=== PATIENT | male | born 1995 ===

== ENCOUNTER 2018-01-09 08:22 | Emergency (ER) | payer MEDICAID ==
[2018-01-09 08:24] VITALS: BP 140/89
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
[2018-01-09] MEDS: IBUPROFEN 800 MG TAB PO ONE ×2 (08:30→08:45)
--- NOTE | 2018-01-09 09:09 | RADIOLOGY IMAGING REPORT ---
FACILITY: [facility] PATIENT NAME: Vicente Prabhakar : 1995 MR: [id number] V: [id number] EXAM DATE: ORDERING PHYSICIAN: JENN ROBIN TECHNOLOGIST: Location: [facility] Patient: Vicente Prabhakar : 1995 Visit/Account:[id number] Date of Sevice: 01/09/2018 Technique: KNEE 3 VIEW LEFT HISTORY: Knee pain Comparison studies: Left knee radiographs April 26, 2018 FINDINGS: Slight cortical irregularity and lucency is noted within the left fibular head. The alignme nt of the left knee is maintained. No knee joint effusion. IMPRESSION: 1. Slight cortical irregularity and lucency within the left fibular head likely representing osseous superimposition; however, correlate with point tenderness to exclude fracture. Report Dictated By: Alfredo Mace DO at 01/09/2018 9:02 AM Report E-Signed By: Alfredo Mace DO at 01/09/2018 9:04 AM WSN:[id number]
== END 2018-01-09 09:05 | disposition home or self-care (01) ==
LOC: ER 08:26
DX: M25.562 Pain in left knee (principal)
CPT/HCPCS: 99283

== ENCOUNTER → 2018-01-09 | Outpatient (CLI) | payer MEDICAID ==
[~2018-01-09] MED LIST: LEVO-3
== END ==
LOC: AMB 08:07
PROVIDERS: ATTEND Nurse Practitioner
DX: M25.561 Pain in right knee (principal); Q90.9 Down syndrome, unspecified
CPT/HCPCS: A0425; A0429

== ENCOUNTER → 2018-11-10 | Outpatient (CLI) | payer MEDICAID ==
[2018-11-10 08:37] LABS: PLATELET COUNT, AUTOMATED 323 K/uL (150-450)
[2018-11-10 08:42] LABS: LDL CHOLESTEROL 92 mg/dl
== END ==
LOC: LAB 08:04
PROVIDERS: ATTEND Nurse Practitioner Family
DX: E03.9 Hypothyroidism, unspecified (principal); R42 Dizziness and giddiness; R56.9 Unspecified convulsions
CPT/HCPCS: 36415; 82040; 82247; 82310; 82374; 82435; 82465; 82565; 82947; 83718; 84075; 84132; 84146; 84155; 84295; 84443; 84450; 84460; 84478; 84484; 84520; 85025

== ENCOUNTER → 2019-02-23 | Outpatient (CLI) | payer OTHER ==
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
== END ==
LOC: US 03:32
PROVIDERS: ATTEND Nurse Practitioner Family
DX: R10.11 Right upper quadrant pain (principal); R10.12 Left upper quadrant pain
CPT/HCPCS: 76700